=== PATIENT | female | born 1960 | race Caucasian/White ===

== ENCOUNTER 2017-10-18 06:00 | Day surgery (SDC) | payer OTHER ==
[~2017-10-18 06:00] MED LIST: EFFEXOR XR37.5 MG PO; FOLIC ACID1 MG PO; GABAPENTIN400 MG PO; LEVO-T25 MCG PO; LOPRESSOR HCT1 EACH PO; TAGAMET300 MG PO; TRAZODONE HCL150 MG PO
== END 2017-10-18 13:35 | disposition home or self-care (01) ==
LOC: CIR.AMB 06:00
DX: G56.02 Carpal tunnel syndrome, left upper limb (principal); R22.32 Localized swelling, mass and lump, left upper limb